=== PATIENT | male | born 1935 | race African-American/Black ===

== ENCOUNTER 2016-10-28 08:15 | Day surgery (SDC) | payer MEDICARE ==
--- NOTE | ~2016-10-28 | EGD ---
EGD REPORT [facility] [address] [id number] NAME: EDUARDO MCWILLIAMS : [birth year] STATUS : REG [facility]#: [id number] AGE: 81 ADM/REG DATE : 10/28/16 MR#: [id number] REPORT SERV DATE: 10/28/16 DICTATED BY: VINITA ORTEGA DATE: 10/28/16 REPORT STATUS : Draft TRANSCRIBED BY: [facility] DATE: 10/28/16 Endoscopy Center Patient Name: Eduardo Mcwilliams Date of : 1935 Attending MD: VINITA ORTEGA MD Procedure Date No Time: 10/28/2016 Procedure: Colonoscopy Indications: Incidental constipation noted, Incidental diarrhea noted, Last colonoscopy: May 2001, Positive Cologuard test Referring MD: MARSHA LAWRENCE II Medicines: Propofol per Anesthesia Complications: No immediate complications. Estimated blood loss: None. Procedure: Pre-Anesthesia Assessment: - After reviewing the risks and benefits, the patient was deemed in satisfactory condition to undergo the procedure. - Prior to the procedure, a History and Physical was performed, and patient medications and allergies were reviewed. The patient's tolerance of previous anesthesia was also reviewed. The risks and benefits of the procedure and the sedation options and risks were discussed with the patient. All questions were answered, and informed consent was obtained. Prior Anticoagulants: The patient has taken no previous anticoagulant or antiplatelet agents. ASA Grade Assessment: II - A patient with mild systemic disease. After reviewing the risks and benefits, the patient was deemed in satisfactory condition to undergo the procedure. After I obtained informed consent, the scope was passed under direct vision. Throughout the procedure, the patient's blood pressure, pulse, and oxygen saturations were monitored continuously. The CF [id number] was introduced through the anus and advanced to the cecum, identified by appendiceal orifice and ileocecal valve. The colonoscopy was performed with difficulty due to significant looping and a tortuous colon. Successful completion of the procedure was aided by applying abdominal pressure. The ileocecal valve and appendiceal orifice were photographed. The patient tolerated the procedure well. The quality of the bowel preparation was adequate to identify polyps 6 mm and larger in size. The bowel preparation used was polyethylene glycol (PEG). Scope withdrawal time was greater than 14 minutes. EGD REPORT [id number] [place]. [address] NAME: EDUARDO MCWILLIAMS : [birth year] STATUS : REG [facility]#: [id number] AGE: 81 ADM/REG DATE : 10/28/16 MR#: [id number] REPORT SERV DATE: 10/28/16 DICTATED BY: VINITA ORTEGA DATE: 10/28/16 REPORT STATUS : Draft TRANSCRIBED BY: [employer] DATE: 10/28/16 Findings: The perianal and digital rectal examinations were normal. Pertinent negatives include normal sphincter tone. Non-bleeding internal hemorrhoids were found during retroflexion and were medium-sized and Grade I (internal hemorrhoids that do not prolapse). A sessile polyp was found in the ascending colon. The polyp was 30 mm in size. The polyp was removed with a hot snare. Resection was complete, but the polyp tissue was only partially retrieved with a small piece of the larger lesion being sent for pathology. Estimated blood loss: none. A pedunculated polyp was found in the distal transverse colon. The polyp was 15 mm in size. The polyp was removed with a hot snare. Resection and retrieval were complete. Estimated blood loss: none. The exam was otherwise without abnormality. Impression: - Non-bleeding internal hemorrhoids. - One 30 mm polyp in the ascending colon. Complete resection. Partial retrieval. - One 15 mm polyp in the distal transverse colon. Resected and retrieved. - The examination was otherwise normal. Recommendation: - Discharge patient to home (ambulatory). - Return to previous diet. - Continue present medications. - Await pathology results. - No further routine surveillance colonoscopy. - Return to GI clinic PRN. - Patient has a contact number available for emergencies. The signs and symptoms of potential delayed complications were discussed with the patient. Return to normal activities tomorrow. Written discharge instructions were provided to the patient. Procedure Code(s): --- Professional --- 77294, Colonoscopy, flexible, proximal to splenic flexure; with removal of tumor(s), polyp(s), or other lesion(s) by snare technique Diagnosis Code(s): --- Professional --- K64.0, First degree hemorrhoids D12.3, Benign neoplasm of transverse colon D12.2, Benign neoplasm of ascending colon CPT copyright 2013 [employer]. All rights reserved. EGD REPORT [facility] [address] [address] NAME: EDUARDO MCWILLIAMS : 31 STATUS : REG [facility] [place] PAT#: [id number] AGE: 81 ADM/REG DATE : 10/28/16 MR#: [id number] REPORT SERV DATE: 10/28/16 DICTATED BY: VINITA ORTEGA DATE: 10/28/16 REPORT STATUS : Draft TRANSCRIBED BY: [employer] DATE: 10/28/16 The codes documented in this report are preliminary and upon professor of surgery review may be revised to meet current compliance requirements. VINITA ORTEGA MD 10/28/2016 10:02 AM This report has been signed electronically. Number of Addenda: 0 Note Initiated On: 10/28/2016 9:23 AM Scope Withdrawal Time 0 hours 14 minutes 49 seconds [address] [id number]
[~2016-10-28 08:15] MED LIST: CYANO1000T PO; DITRO5 PO; EZFE 200200 MG PO; FISH-EPA1000 MG PO; GLUCOPHAGE1000 MG PO; LEVEMFLXPN SC; LOP50 PO; MICARDIS80 PO; NOVOPENMIX SC; THERAPEUTIC PO; UROXATRAL PO
== END 2016-10-28 23:59 | disposition home or self-care (01) ==
LOC: DMU 08:15
PROVIDERS: Internal Medicine Gastroenterology
PROC: 0DBL8ZZ Excision of Transverse Colon, Via Natural or Artificial Opening Endoscopic (ICD-10-PCS; 2016-10-28)
PROC: 0DBK8ZZ Excision of Ascending Colon, Via Natural or Artificial Opening Endoscopic (ICD-10-PCS; principal; 2016-10-28 09:30)
DX: D12.2 Benign neoplasm of ascending colon (principal); D12.3 Benign neoplasm of transverse colon; K64.0 First degree hemorrhoids; I10 Essential (primary) hypertension; E11.9 Type 2 diabetes mellitus without complications; M19.90 Unspecified osteoarthritis, unspecified site; Z96.1 Presence of intraocular lens; Z98.41 Cataract extraction status, right eye; Z85.46 Personal history of malignant neoplasm of prostate; Z79.84 Long term (current) use of oral hypoglycemic drugs; Z79.899 Other long term (current) drug therapy; Z98.890 Other specified postprocedural states
CPT/HCPCS: 82962; 88305